=== PATIENT | male | born 1965 | race Caucasian/White ===

== ENCOUNTER 2022-03-09 06:11 | Outpatient (REF) | payer BC, SELFPAY ==
[2022-03-09 11:39] LABS: Hemoglobin 13.7 g/dl (14.0-18.0); Mean Corpuscular HGB Conc 33.4 g/dl (31.0-36.0); Mean Corpuscular Hemoglobin 28.7 pg (27.0-33.0); Mean Corpuscular Volume 85.8 fL (80.0-98.0); Mean Platelet Volume 10.4 fL (9.4-12.4); Platelet Count 203 X10*3/uL (160-400); Red Blood Count 4.78 X10*6/uL (4.60-5.80); Red Cell Distribution Width 13.2 % (11.0-16.0)
[2022-03-09 12:55] LABS: Alanine Aminotransferase 25 U/L (0-40); Albumin Level 4.4 g/dL (3.5-5.0); Alkaline Phosphatase 55 U/L (39-117); Anion Gap 17 (12-20); Aspartate Amino Transferase 15 U/L (5-37); Bilirubin Total 2.9 mg/dL (0.0-1.0); Blood Urea Nitrogen 29 mg/dL (9-16); Carbon Dioxide 23 mmol/L (22-29); Chloride 103 mmol/L (96-108); Cholesterol 330 mg/dL; Estimated Glomerular Filt Rate > 60; Glucose Fasting 91 mg/dL (60-99); HDL Cholesterol 30 mg/dL; Potassium 4.2 mmol/L (3.3-5.1); Sodium 139 mmol/L (135-145); Total Protein 7.1 g/dL (6.5-8.0); Triglycerides 707 mg/dL
[2022-03-09 13:01] LABS: TSH reflex Free T4 5.93 uIU/mL (0.32-4.0)
[2022-03-09 13:59] LABS: Free T4 (Free Thyroxine) 0.88 ng/dL (0.71-1.85)
== END 2022-03-09 06:12 | disposition home or self-care (01) ==
LOC: HO.HMGCLDS 06:11
PROVIDERS: PCP Hospitalist; Visit Provider Hospitalist
DX: Z00.00 Encounter for general adult medical examination without abnormal findings (principal)
CPT/HCPCS: 36415; 80053; 80061; 84439; 84443; 85027

== ENCOUNTER → 2022-07-18 14:41 | Outpatient (BNVA) | payer SELFPAY | PROVIDERS: PCP Hospitalist; Visit Provider Physician Assistant Medical | DX: Z02.79 Encounter for issue of other medical certificate (principal) ==

== ENCOUNTER 2023-06-10 14:48 | Outpatient (AMB) | payer BC, SELFPAY ==
--- NOTE | 2023-06-10 14:50 | MHC.PC.OV ---
Vital Signs 06/10/23 14:51 Height 5 ft 9 in Weight 210 lb 2 oz BMI 31.0 BP 116/76 Blood Pressure Location Lt brachial Position Sitting Respiration 13 Pulse 68 Pulse Source Pulse Oximeter Temp 98.1 F Temp Source Temporal Artery Scan Pulse Oximetry (%) 98 Oxygen Delivery Method Room Air Intake Visit Reasons: Transfer of care - req PE Intake Note: Patient would like refill on topical cream. 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 Accompanied by: Self / Same As Patient Allergies No Known Allergies Allergy (Verified 06/10/23 15:15) Medication List - Last Reconciled 06/10/23 by Dominik Quick CNP triamcinolone acetonide 0.1% 1 appl topical BID Tobacco use date assessed: 06/10/23 Dental Screening Dental Screen Date: 06/10/23 Did you have a dental visit in the last 12 months?: No Did you have a dental problem in the last 6 months where you did not have access to dental care?: No Was dental information given to patient?: Patient has dentist HPI HPI Comments History of Present Illness Details 57-year-old male presents for transfer of care He has past medical history of inverse psoriasis His former PCP was JOCELYNN who is longer with the practice He requests a refill of triamcinolone acetonide for his psoriasis He reports feeling low energy for the past six months. He denies fatigue or weakness He denies acute symptoms at this time He notes that he drinks every weekend (Fridays and Saturdays): 2-3 glasses of wine or 3-4 beers He states that he quit smoking cigarette 25 years ago He denies recreational drug use He does not recall when or where he had his last colonoscopy: unsure of result but was told to repeat within 5 years He notes that he has not been vaccinated for shingles and does not intend to get the vaccines [facility] Medical History (Updated 06/10/23 @ 15:50 by Dominik Quick CNP) Broken foot Surgical History (Updated 06/10/23 @ 15:02 by Courtney Gambino MA) No pertinent past surgical history Housing: House Patient Tobacco Use Status: Former Tobacco user Tobacco use type: Cigarette e-Cigarette/Vaping Use: Never Used Second Hand Smoke Exposure: No service: No Current occupational status: employed Current occupation: construction Current occupational exposures/hazards: Yes (noise) Cognitive needs: No Hearing needs: No Vision needs: No Questionnaire PHQ-9 Over the last 2 weeks, how often have you been bothered by any of the following problems? 1. Little interest or pleasure in doing things: several days 2. Feeling down, depressed, or hopeless: not at all 3. Trouble falling or staying asleep, or sleeping too much: not at all 4. Feeling tired or having little energy: nearly every day 5. Poor appetite or overeating: not at all 6. Feeling bad about yourself - or that you are a failure or have let yourself or your family down: not at all 7. Trouble concentrating on things, such as reading the newspaper or watching television: not at all 8. Moving or speaking so slowly that other people could have noticed. Or the opposite - being so fidgety or restless that you have been moving around a lot more than usual: not at all 9. Thoughts that you would be better off or of hurting yourself in some way: not at all Total score: 4 Depression Screening Interpretation: Negative Depression Screening Done: Yes 28394 - PHQ-9 Billing: Yes Source: Developed by Drs. Primo Recio, Nicole Nuñez, Evgeny Patel and colleagues, with an educational mary lou from [employer]. Thrive Questionnaire Date Thrive assessed: 06/10/23 I am a: Patient What is your living situation today?: I have a steady place to live Within the past 12 months, did the food you bought not last and you didn't have the money to get more?: Never true Within the past 12 months, did you worry whether your food would run out before you got money to buy more?: Never true Do you have trouble paying for medicines?: No Do you have trouble getting transportation to medical appointments?: No Do you have trouble paying your heating and electricity bill?: No Do you have trouble taking care of your child, family member or friend?: No Do you have trouble with day-to-day activities such as bathing, preparing meals, shopping, managing finances, etc.?: No Are you currently unemployed and looking for a job?: No Are you interested in more education?: No Please select the resources that you would like help with: None Currently or been in a relationship where the following occur: no concerns reported AUDIT C Alcohol Use Questionnaire (AUDIT-C) 1. How often do you have a drink containing alcohol?: 2-3 times a week 2. How many drinks containing alcohol do you have on a typical day when you are drinking?: 3 or 4 3. How often do you have six or more drinks on one occasion?: Never Total Score: 4 NARA-7 AMB Questionnaire NARA-7 Date NARA - 7 assessed: 06/10/23 Feeling nervous, anxious, or on edge: 1 = Several days Not being able to stop or control worryin = Several days Worrying too much about different things: 1 = Several days Trouble relaxin = Several days Being so restless that it is hard to sit still: 1 = Several days Becoming easily annoyed or irritable: 1 = Several days Feeling afraid as if something awful might happen: 1 = Several days Total NARA-7 score (0-4 normal; 5-9 mild; 10-14 moderate; 15-21 severe): 7 Source: Developed by Drs. Primo Recio, Nicole Nuñez, Evgeny Patel and colleagues, with an educational mary lou from [employer]. NARA-7 Assessment Billing NARA-7 Assessment Tool: NARA-7 Assessment 45651 Review of Systems Const Details: Denies chills, Denies fatigue, Denies fever(s), Denies headache(s) and Denies weakness HEENT Denies change in vision, Denies dizziness, Denies headache(s), Denies hearing loss, Denies nasal congestion, Denies sinus pain, Denies sinus pressure and Denies sore throat Card Denies chest pain, Denies lightheadedness, Denies dyspnea and Denies other (palpitations) Resp Denies cough, Denies dyspnea and Denies wheezing GI Denies abdominal pain, Denies melena, Denies hematochezia, Denies change in bowel habits, Denies dyspepsia and Denies nausea Denies hematuria and Denies dysuria Musc Denies abnormal gait, Denies myalgias, Denies arthralgias, Denies numbness and Denies tingling Skin/Breast Denies rash, Denies unusual bruising and Denies wounds Neuro Denies abnormal gait, Denies dizziness, Denies headache(s), Denies memory loss, Denies numbness, Denies Sensory deficit (Neuro), Denies tingling and Denies weakness Psych Denies anxiety, Denies depression and Denies memory loss Endo Denies cold intolerance, Denies fatigue, Denies heat intolerance, Denies polydipsia and Denies polyuria Dion/Lymph Denies easy bleeding and Denies easy bruising Aller/Immun Denies wheezing Physical exam (Primary Care) Vital Signs: Last Vital Signs Temp 98.1 F 06/10/23 14:51 Pulse 68 06/10/23 14:51 Resp 13 06/10/23 14:51 BP 116/76 06/10/23 14:51 Pulse Ox 98 06/10/23 14:51 Oxygen Delivery Method Room Air 06/10/23 14:51 BMI result Body Mass Index 31.0 Tobacco/Smoking Status: Tobacco use Status Tobacco use date assessed 06/10/23 06/10/23 15:06 Patient Tobacco Use Status Former Tobacco user 06/10/23 15:06 Tobacco use type Cigarette 06/10/23 15:06 e-Cigarette/Vaping Use Never Used 06/10/23 15:06 PHQ-9: PHQ-9 Score PHQ-9: Total score 4 06/10/23 15:06 Depression Screening Interpretation: Negative Thrive Assessment: Date of Thrive Assessment Date Thrive assessed 06/10/23 06/10/23 15:06 Currently or been in a relationship where the following occur: no concerns reported Const Other: General: no acute distress, well developed, alert and awake Nutritional Appearance: well nourished Orientation/consciousness: patient oriented x3 HENMT Head: Yes normocephalic and Yes atraumatic Ears: hearing grossly normal bilaterally and TM's normal bilaterally General nose exam: Normal external nose present and Normal nares present Mouth: Normal oral and palatal mucosa present and moist mucous membranes Teeth and gingiva: dentition normal Throat: Yes oropharynx normal Eyes Pupils: Equal, round and reactive pupils present and Pupil accommodation reflex normal EOM: EOMs intact bilaterally Neck Neck: Yes normal visual inspection, Yes no lymphadenopathy and Yes trachea midline Thyroid: Thyroid normal Carotids: no bruits Lymphatic: no lymphadenopathy noted Chest Chest palpation & inspection: normal inspection of the chest Resp Effort & Inspection: normal respiratory effort Auscultation: clear to auscultation bilaterally Cardio Rate: regular rate Rhythm: regular rhythm Heart sounds: S1 normal heart sound present, S2 normal heart sound present, no gallops, no murmurs and no rubs Bruits: no abdominal aortic bruits and no carotid bruits GI Palpation (GI): No Abdominal aortic bruit present, Soft to palpation, nontender, No hepatosplenomegaly present and No Rebound tenderness present Auscultation: normal bowel sounds General: Yes no CVA tenderness Back/Spine/Pelvis Back: no CVA tenderness Cervical Spine: cervical ROM normal and No Cervical spine tenderness Thoracic/Lumbar Spine: thoraco-lumbar ROM normal, No pain with thoraco-lumbar ROM, No thoracic spinal tenderness and No lumbar spinal tenderness Skin General: warm and dry. Normal skin color. Normal skin turgor Lesions: no lesions Rashes: no rashes Trauma: no lacerations or abrasions Wounds: no wounds Nails: normal Neuro General: patient oriented x3, gait normal and CN's II-XI intact bilaterally Cranial nerves: Yes Equal, round and reactive pupils present Cognition (Neuro): normal cognition Gait exam (Neuro): Normal gait present Motor exam (neuro): 5/5 motor strength present throughout Sensory Exam: No Sensory deficit (Neuro) Deep tendon reflexes (DTR's): Right patellar reflex intensity grade: 2+ and Left patellar reflex intensity grade: 2+ Extrem General: Yes normal to inspection, No edema and No calf tenderness Psych Appearance: grossly normal Affect: normal affect Attitude: cooperative Thought process: Normal thought process present Assessment and Plan Assessment & Plan (1) Normal physical exam: Code(s): Z00.00 - Encounter for general adult medical examination without abnormal findings Plan: No significant physical restrictions limitations noted Advised to get routine fasting blood work done and schedule a telehealth visit for labs review He does not recall his last colonoscopy: unsure of result but was told to repeat within 5 years. Encouraged to request for colonoscopy record sent to us for review and appropriate recommendation for follow-up Verbalized understanding and agrees with the plan (2) Low energy: Code(s): R53.83 - Other fatigue Plan: Reports feeling low energy for the past six months. No fatigue or weakness He blood work done in April 2022. His TSH was slightly elevated, H&H was slightly low Labs ordered. Will review results and make changes as needed Routine exercise and adequate hydration encouraged Return with worsening or new symptoms Verbalized understanding and agreed with treatment plan (3) Laboratory tests ordered as part of a complete physical exam (CPE): Code(s): Z00.00 - Encounter for general adult medical examination without abnormal findings Plan: Fasting labs ordered as part of a complete physical exam. Advised to fast for at least 10 hours before getting labs drawn. May drink water Verbalized understanding and agreed with treatment plan. (4) Vaccine counseling: Code(s): Z71.85 - Encounter for immunization safety counseling Plan: He notes that he has not been vaccinated for shingles and does not intend to get the vaccines Instructed on the importance of vaccination advised to get vaccinated for shingles Orders: Orders TSH reflex Free T4 Today Z00.00 - Encounter for general adult medical examination without abnormal findings Lipid Panel Today Z00.00 - Encounter for general adult medical examination without abnormal findings UA CC w/rflx Micro + Cult Today Z00.00 - Encounter for general adult medical examination without abnormal findings Complete Blood Count Auto Diff Today Z00.00 - Encounter for general adult medical examination without abnormal findings Comprehensive [place]. Panel Fast Today Z00.00 - Encounter for general adult medical examination without abnormal findings PSA, Ultra Sensitive Today Z00.00 - Encounter for general adult medical examination without abnormal findings Medications: Refilled triamcinolone acetonide 0.1% 1 appl topical BID 15 grams 3RF L40.8 - Other psoriasis Coding Level of Care Code Est Pt Prev Care 40-64y(61511) Diagnoses Normal physical exam Z00.00 Low energy R53.83 Laboratory tests ordered as part of a complete physical exam (CPE) Z00.00 Vaccine counseling Z71.85 Additional Codes NARA-7 Assessment Billing - NARA-7 Assessment Tool: NARA-7 Assessment 11373 ([id number])
[2023-06-10 14:51] VITALS: BP 116/76; PULSE 68; RESP 13; TEMP 36.7; O2SAT 98; BMI 31.0
== END 2023-06-10 15:54 | disposition home or self-care (01) ==
PROVIDERS: PCP Hospitalist; Visit Provider Nurse Practitioner Family
DX: Z00.00 Encounter for general adult medical examination without abnormal findings (principal); R53.83 Other fatigue; Z71.85 Encounter for immunization safety counseling
CPT/HCPCS: 99396

== ENCOUNTER 2023-06-12 06:16 | Outpatient (REF) | payer BC, SELFPAY ==
[2023-06-12 06:31] LABS: MANUAL DIFF FLAG NO
[2023-06-12 07:37] LABS: Basophils Absolute Auto 0.1 X10*3/uL (0.0-0.2); Basophils Percent Auto 1.1 % (0-2); Eosinophils Absolute Auto 0.1 X10*3/uL (0.0-0.4); Eosinophils Percent Auto 1.8 % (0-4); Hematocrit 40.1 % (42.0-52.0); Hemoglobin 13.7 g/dl (14.0-18.0); Imm Gran Abs Auto 0.02 X10*3/uL (0.00-0.03); Imm Gran Pct Auto 0.4 % (0.0-0.4); Lymphocytes Absolute Auto 1.3 X10*3/uL (1.2-4.9); Lymphocytes Percent Auto 27.5 % (20-40); Mean Corpuscular HGB Conc 34.2 g/dl (31.0-36.0); Mean Corpuscular Hemoglobin 29.3 pg (27.0-33.0); Mean Corpuscular Volume 85.9 fL (80.0-98.0); Mean Platelet Volume 10.2 fL (9.4-12.4); Monocytes Absolute Auto 0.4 X10*3/uL (0.1-1.2); Monocytes Percent Auto 8.6 % (2-11); Neutrophils Absolute Auto 2.8 x10*3/uL (2.0-8.3); Neutrophils Percent Auto 60.6 % (45-73); Platelet Count 214 X10*3/uL (160-400); Red Blood Count 4.67 X10*6/uL (4.60-5.80); Red Cell Distribution Width 13.2 % (11.0-16.0); White Blood Count 4.6 X10*3/uL (4.8-10.8)
[2023-06-12 08:25] LABS: Alanine Aminotransferase 36 U/L (0-40); Albumin Level 4.3 g/dL (3.5-5.0); Alkaline Phosphatase 61 U/L (39-117); Anion Gap 13 (12-20); Aspartate Amino Transferase 20 U/L (5-37); Bilirubin Total 3.1 mg/dL (0.0-1.0); Blood Urea Nitrogen 19 mg/dL (9-16); Calcium 9.2 mg/dL (8.4-10.2); Carbon Dioxide 26 mmol/L (22-29); Chloride 104 mmol/L (96-108); Cholesterol 313 mg/dL (<200); Estimated Glomerular Filt Rate > 60; Glucose Fasting 88 mg/dL (60-99); HDL Cholesterol 31 mg/dL (>40); Potassium 4.1 mmol/L (3.3-5.1); Sodium 139 mmol/L (135-145); Total Protein 7.1 g/dL (6.5-8.0); Triglycerides 468 mg/dL (<150)
[2023-06-12 08:32] LABS: TSH reflex Free T4 5.65 uIU/mL (0.32-4.0)
[2023-06-12 08:50] LABS: Appearance Urine Clear; Color Urine Yellow; Glucose Urine UA Negative (Negative); Leukocyte Esterase Urine Negative (Negative); Nitrite Urine Negative (Negative); Specific Gravity - Urine 1.025 (1.005-1.025); Urine Blood Negative (Negative); Urine Ketones Negative (Negative); Urine Protein Negative (Neg-Trace)
[2023-06-13 09:18] LABS: LDL Cholesterol Direct 105 mg/dL (<100)
[2023-06-20 14:15] LABS: PSA, Ultra Sensitive 0.43 ng/mL
== END 2023-06-12 06:17 | disposition home or self-care (01) ==
LOC: HO.LAB 06:16
PROVIDERS: PCP Nurse Practitioner Family; Visit Provider Nurse Practitioner Family
DX: Z00.00 Encounter for general adult medical examination without abnormal findings (principal); Z12.5 Encounter for screening for malignant neoplasm of prostate; E78.5 Hyperlipidemia, unspecified
CPT/HCPCS: 36415; 80053; 80061; 81003; 83721; 84153; 84439; 84443; 85025

== ENCOUNTER 2023-06-12 15:44 | Outpatient (AMB) | payer BC, SELFPAY ==
--- NOTE | 2023-06-12 15:41 | A.OFFPC_ITS ---
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 Patient transferred care 2 days ago, had an extended physical exam, and routine labs were ordered. He reported He reports feeling low energy for the past six months. He offered no other complaints. He reports history of Gilbert syndrome with h/o elevated bilirubin levels [facility] Medical History (Updated 06/12/23 @ 16:14 by Dominik Quick CNP) Broken foot Surgical History (Updated 06/10/23 @ 15:02 by Courtney Gambino MA) No pertinent past surgical history Social History Housing: House Patient Tobacco Use Status: Former Tobacco user Tobacco use type: Cigarette e-Cigarette/Vaping Use: Never Used Second Hand Smoke Exposure: No service: No Current occupational status: employed Current occupation: construction Current occupational exposures/hazards: Yes (noise) Cognitive needs: No Hearing needs: No Vision needs: No Questionnaire Thrive Questionnaire Date Thrive assessed: 06/10/23 NARA-7 AMB Questionnaire NARA-7 Date NARA - 7 assessed: 06/10/23 Source: Developed by Drs. Primo Recio, Nicole Nuñez, Evgeny Patel and colleagues, with an educational mary lou from [employer]. Review of Systems Const Details: Const Denies chills, Denies fatigue, Denies fever(s), Denies headache(s) and Denies weakness ENT Denies dizziness and Denies headache(s) Card Denies chest pain, Denies lightheadedness, Denies dyspnea and Denies other (Palpitations) Resp Denies cough, Denies dyspnea, Denies wheezing and Denies other ( shortness of breath) GI Denies abdominal pain, Denies melena, Denies hematochezia, Denies change in bowel habits, Denies dyspepsia and Denies nausea Denies hematuria and Denies dysuria Musc Denies abnormal gait, Denies myalgias, Denies arthralgias, Denies numbness and Denies tingling Skin/Breast Denies rash, Denies unusual bruising and Denies wounds Neuro Denies abnormal gait, Denies dizziness, Denies headache(s), Denies memory loss, Denies numbness, Denies Sensory deficit (Neuro), Denies tingling and Denies weakness Psych Denies anxiety, Denies depression, Denies memory loss Endo Denies cold intolerance, Denies fatigue, Denies heat intolerance, Denies polydipsia and Denies polyuria Aller/Immun Denies wheezing Physical exam (Primary Care) Tobacco/Smoking Status: Tobacco use Status Tobacco use date assessed 06/10/23 06/12/23 15:42 Patient Tobacco Use Status Former Tobacco user 06/12/23 15:42 Tobacco use type Cigarette 06/12/23 15:42 e-Cigarette/Vaping Use Never Used 06/12/23 15:42 Thrive Assessment: Date of Thrive Assessment Date Thrive assessed 06/10/23 06/12/23 15:42 Const Other: Telephonic telehealth visit. No physical exam Telehealth Telehealth Location of provider rendering services: practice address Location of patient: other Patient Identification confirmed using: Name, : Yes Telehealth method: voice only Patient verbally consented to treatment: Yes Patient verbally consented to billing insurance company: Yes Patient informed of any privacy concerns related to visit: Yes Assessment and Plan Assessment & Plan (1) Hyperlipidemia: Code(s): E78.5 - Hyperlipidemia, unspecified Plan: Recent triglyceride and total cholesterol levels elevated, 468 in 360 respectively, HDL level is low, 31, LDL cholesterol direct is pending His 10 year risk of ASCVD is a 1.8% Atorvastatin ordered. Take as prescribed Advised to limit foods high in saturated fat and avoid foods high in trans fat Routine exercise encouraged Will recheck lipid panel in 6 weeks. Advised to fast for 10-12 hours, may drink water only, and get blood work done before his next visit Follow-up in 6 weeks or return sooner with symptoms or concerns Verbalized understanding and agreed with treatment plan (2) Mild anemia: Code(s): D64.9 - Anemia, unspecified Plan: Recent H&H is low, 13.7/40.1 His low energy may be attributed to anemia Will check iron profile, ferritin level, retic count, vitamin B12, and folate levels Follow-up in 6 weeks Verbalized understanding and agreed with treatment plan (3) Hypothyroidism: Code(s): E03.9 - Hypothyroidism, unspecified Plan: TSH level is elevated, 5.65, free T4 is normal His low energy may be attributed to hypothyroidism Levothyroxine ordered. Take as prescribed Will recheck TSH level in 6 weeks. Advised to get blood work done before his next visit Follow-up in 6 weeks Verbalized understanding and agreed with treatment plan (4) Elevated bilirubin: Code(s): R17 - Unspecified jaundice Plan: Reports history of Gilbert syndrome with h/o elevated bilirubin levels Recent bilirubin is elevated, 3.1. Previous bilirubin level over a year ago was elevated, 2.9 Advised that this condition is harmless and to follow-up with severe yellowing of the skin or eyes Verbalized understanding and agreed with the plan Orders: Orders TSH reflex Free T4 6 Weeks E03.9 - Hypothyroidism, unspecified Lipid Panel 6 Weeks E78.5 - Hyperlipidemia, unspecified Medications: New levothyroxine 50 mcg PO DAILY 30 days 30 tabs 3RF atorvastatin 20 mg PO BEDTIME 30 days 30 tabs 3RF Coding Level of Care Code Tele Est Pt Level 2 (88935) Diagnoses Hyperlipidemia E78.5 Mild anemia D64.9 Hypothyroidism E03.9 Elevated bilirubin R17 Time Spent (min) 20
== END 2023-06-12 17:00 | disposition home or self-care (01) ==
LOC: HO.HMGFM 15:44
PROVIDERS: PCP Nurse Practitioner Family; Visit Provider Nurse Practitioner Family
DX: E78.5 Hyperlipidemia, unspecified (principal); D64.9 Anemia, unspecified; E03.9 Hypothyroidism, unspecified; R17 Unspecified jaundice
CPT/HCPCS: 99442

== ENCOUNTER 2023-07-26 09:38 | Outpatient (REF) | payer BC, SELFPAY ==
[2023-07-26 11:41] LABS: Immature Retic Fraction 6.8 % (2.3-13.4); Retic HGB Equivalent 34.5 pg (30.0-35.0); Reticulocytes Absolute 0.045 X10*6/uL (0.026-0.095)
[2023-07-26 12:41] LABS: Cholesterol 222 mg/dL (<200); HDL Cholesterol 33 mg/dL (>40); Iron 79 mcg/dL (45-160); LDL Cholesterol Calculated 143 mg/dL (<100); Percent Iron Saturation 27 % (15-50); Total Iron Binding Capacity 296 mcg/dL (228-428); Triglycerides 233 mg/dL (<150); Unsaturated Iron Binding 217 ug/dL
[2023-07-26 13:01] LABS: Ferritin 763 ng/mL (20-250); TSH reflex Free T4 3.54 uIU/mL (0.32-4.0)
[2023-07-26 13:08] LABS: Folate 12.1 ng/mL (> or = 4.0); Vitamin B12 442 pg/mL (200-900)
== END 2023-07-26 09:39 | disposition home or self-care (01) ==
LOC: HO.WFDLDS 09:38
PROVIDERS: Visit Provider Nurse Practitioner Family
DX: E03.9 Hypothyroidism, unspecified (principal); D64.9 Anemia, unspecified; E78.5 Hyperlipidemia, unspecified
CPT/HCPCS: 36415; 80061; 82607; 82728; 82746; 83540; 84443; 85045

== ENCOUNTER 2023-07-30 16:13 | Outpatient (AMB) | payer BC, SELFPAY ==
[2023-07-30 16:27] VITALS: BP 126/78; PULSE 77; RESP 13; TEMP 36.5; O2SAT 99; BMI 29.8
--- NOTE | 2023-07-30 16:27 | MHC.PC.OV ---
Vital Signs 07/30/23 16:27 Height 5 ft 9 in Weight 202 lb BMI 29.8 BP 126/78 Blood Pressure Location Rt brachial Position Sitting Respiration 13 Pulse 77 Pulse Source Pulse Oximeter Temp 97.7 F Temp Source Temporal Artery Scan Pulse Oximetry (%) 99 Oxygen Delivery Method Room Air Intake Visit Reasons: 6 wks HLD, anemia, hypothyroidism Supervisor Heat Treating Required: No Accompanied by: Self / Same As Patient Allergies No Known Allergies Allergy (Verified 07/30/23 16:47) Medication List - Last Reconciled 07/30/23 by Dominik Quick CNP atorvastatin 20 mg PO BEDTIME 30 days levothyroxine 50 mcg PO DAILY 30 days triamcinolone acetonide 0.1% 1 appl topical BID Tobacco use date assessed: 07/30/23 Dental Screening Dental Screen Date: 07/30/23 Did you have a dental visit in the last 12 months?: No Did you have a dental problem in the last 6 months where you did not have access to dental care?: No Was dental information given to patient?: Patient has dentist HPI HPI Comments History of Present Illness Details 57-year-old male presents for hyperlipidemia, hypothyroidism, and anemia follow-up He admits to taking his medications as prescribed without adverse reactions He notes that his energy level has improved He notes that he has been walking two nights weekly and making healthy dietary changes. He lost 8 lb since his last visit in May He offers no complaints and denies acute symptoms FOR[facility], [facility] Medical History Broken foot Surgical History No pertinent past surgical history Social History Housing: House Patient Tobacco Use Status: Former Tobacco user Tobacco use type: Cigarette e-Cigarette/Vaping Use: Never Used Second Hand Smoke Exposure: No service: No Current occupational status: employed Current occupation: construction Current occupational exposures/hazards: Yes (noise) Cognitive needs: No Hearing needs: No Vision needs: No Questionnaire Thrive Questionnaire Date Thrive assessed: 06/10/23 NARA-7 AMB Questionnaire NARA-7 Date NARA - 7 assessed: 06/10/23 Source: Developed by Drs. Primo Recio, Nicole Nuñez, Evgeny Patel and colleagues, with an educational mary lou from [employer] Review of Systems Const Details: Const Denies chills, Denies fatigue, Denies fever(s), Denies headache(s) and Denies weakness ENT Denies dizziness and Denies headache(s) Card Denies chest pain, Denies lightheadedness, Denies dyspnea and Denies other (Palpitations) Resp Denies cough, Denies dyspnea, Denies wheezing and Denies other ( shortness of breath) GI Denies abdominal pain, Denies melena, Denies hematochezia, Denies change in bowel habits, Denies dyspepsia and Denies nausea Denies hematuria and Denies dysuria Musc Denies abnormal gait, Denies myalgias, Denies arthralgias, Denies numbness and Denies tingling Skin/Breast Denies rash, Denies unusual bruising and Denies wounds Neuro Denies abnormal gait, Denies dizziness, Denies headache(s), Denies memory loss, Denies numbness, Denies Sensory deficit (Neuro), Denies tingling and Denies weakness Psych Denies anxiety, Denies depression, Denies memory loss Endo Denies cold intolerance, Denies fatigue, Denies heat intolerance, Denies polydipsia and Denies polyuria Aller/Immun Denies wheezing Physical exam (Primary Care) Vital Signs: Last Vital Signs Temp 97.7 F 07/30/23 16:27 Pulse 77 07/30/23 16:27 Resp 13 07/30/23 16:27 BP 126/78 07/30/23 16:27 Pulse Ox 99 07/30/23 16:27 Oxygen Delivery Method Room Air 07/30/23 16:27 BMI result Body Mass Index 29.8 Tobacco/Smoking Status: Tobacco use Status Tobacco use date assessed 07/30/23 07/30/23 16:34 Patient Tobacco Use Status Former Tobacco user 07/30/23 16:34 Tobacco use type Cigarette 07/30/23 16:34 e-Cigarette/Vaping Use Never Used 07/30/23 16:34 Thrive Assessment: Date of Thrive Assessment Date Thrive assessed 06/10/23 07/30/23 16:34 Const Other: General: no acute distress and well developed Nutritional Appearance: well nourished Orientation/consciousness: patient oriented x3 HENMT Head: Yes normocephalic and Yes atraumatic Eyes General: appearance normal, both eyes and all related structures Pupils: Equal, round and reactive pupils present EOM: EOMs intact bilaterally Resp Effort & Inspection: normal respiratory effort Auscultation: clear to auscultation bilaterally Cardio Rate: regular rate Rhythm: regular rhythm Heart sounds: S1 normal heart sound present, S2 normal heart sound present, no gallops, no murmurs and no rubs GI Palpation (GI): No Abdominal aortic bruit present, Soft to palpation, nontender, No hepatosplenomegaly present and No Rebound tenderness present Auscultation: normal bowel sounds General: Yes no CVA tenderness Back/Spine/Pelvis Back: no CVA tenderness Cervical Spine: cervical ROM normal and No Cervical spine tenderness Thoracic/Lumbar Spine: thoraco-lumbar ROM normal, No pain with thoraco-lumbar ROM, No thoracic spinal tenderness and No lumbar spinal tenderness Extrem General: Yes normal to inspection, No edema and No calf tenderness Skin General: warm and dry. Normal skin color. Normal skin turgor Neuro General: patient oriented x3, gait normal and no focal neuro deficit Cranial nerves: Yes Equal, round and reactive pupils present Cognition (Neuro): normal cognition Gait exam (Neuro): Normal gait present Sensory Exam: No Sensory deficit (Neuro) Psych Appearance: grossly normal Affect: normal affect Attitude: cooperative Thought process: Normal thought process present Assessment and Plan Assessment & Plan (1) Hyperlipidemia: Code(s): E78.5 - Hyperlipidemia, unspecified Plan: Recent LP level trending down, trig/233, total chol/222, LDL/143; LDL is improving 33 Continue current treatment regimen Routine exercise and healthy diet encouraged Advised to limit foods high in saturated fat and avoid foods high trans fat Will recheck lipid level. Advised to fast for 10-12 hours, may drink water only, and get blood work done a few days before his next visit Follow-up in 2 months or return sooner with symptoms or concerns Verbalized understanding and agreed with treatment plan (2) Hypothyroidism: Code(s): E03.9 - Hypothyroidism, unspecified Plan: Recent TSH level was normal He reports improved energy level Continue current treatment regimen Will recheck TSH level in 2 months Follow-up in 2 months Verbalized understanding and agreed with treatment plan (3) Mild anemia: Code(s): D64.9 - Anemia, unspecified Plan: Recent H/H is slightly low 13.7/40.1, MCV is normal Iron profile is normal. Ferritin level is elevated Normal Vitamin B12 and folate level No acute symptoms Will continue to monitor Orders: Orders Lipid Panel 2 Months E78.5 - Hyperlipidemia, unspecified TSH reflex Free T4 2 Months E03.9 - Hypothyroidism, unspecified Coding Level of Care Code Est Pt Level 3 (13901) Diagnoses Hyperlipidemia E78.5 Hypothyroidism E03.9 Mild anemia D64.9
== END 2023-07-30 17:27 | disposition home or self-care (01) ==
PROVIDERS: PCP Nurse Practitioner Family; Visit Provider Nurse Practitioner Family
DX: E78.5 Hyperlipidemia, unspecified (principal); E03.9 Hypothyroidism, unspecified; D64.9 Anemia, unspecified
CPT/HCPCS: 99213